=== PATIENT | male | born 1935 | race Hispanic/Latino ===

== ENCOUNTER 2022-12-20 06:07 | Observation (INO) | payer OTHER ==
[2022-12-17 10:36] LABS: BASOPHILS % (AUTO) 0.6 % (0.0-5.0); EOSINOPHILS % (AUTO) 2.9 % (0.0-8.0); LYMPHOCYTES % (AUTO) 35.9 % (21.0-51.0); MEAN CORPUSCULAR HEMOGLOBIN 31.6 pg (27.0-33.0); MEAN CORPUSCULAR HGB CONC 32.7 g/dL (32.0-36.0); MEAN CORPUSCULAR VOLUME 96.7 fL (79-99); MONOCYTES % (AUTO) 9.7 % (3.0-13.0); NEUTROPHILS % (AUTO) 50.6 % (40.0-77.0); PLATELET COUNT (AUTO) 146 K/uL (130-400); RED BLOOD CELL COUNT(AUTO) 4.24 MIL/uL (4.50-6.20); RED CELL DISTRIBUTION WIDTH 12.5 % (11.0-15.5); WHITE BLOOD COUNT (AUTO) 6.6 K/uL (4.8-10.8)
[2022-12-17 10:41] VITALS: BP 143/73
[2022-12-17 10:52] LABS: APPEARANCE,URINE CLEAR (CLEAR); BILIRUBIN,URINE NEGATIVE (NEGATIVE); COLOR,URINE YELLOW (YELLOW); GLUCOSE, URINE (UA) NEGATIVE (NEGATIVE); KETONES,URINE NEGATIVE (NEGATIVE); LEUKOCYTE ESTERASE ,URINE NEGATIVE Leu/uL (NEGATIVE); NITRATE,URINE NEGATIVE (NEGATIVE); OCCULT BLOOD,URINE NEGATIVE (NEGATIVE); PH,URINE 5.5 (5.0-8.0); PROTEIN,URINE NEGATIVE (NEGATIVE); UROBILINOGEN,URINE 0.2 mg/dL (0.2-1.0)
[2022-12-17 10:53] LABS: INR 0.93 (0.85-1.15); PROTHROMBIN TIME 10.2 SEC (9.6-11.6)
[2022-12-17 10:54] LABS: PARTIAL THROMBOPLASTIN TIME 27.7 SEC (26.3-35.5)
[2022-12-17 11:00] LABS: ALBUMIN 3.4 g/dL (3.5-5.0); CARBON DIOXIDE 28 mmol/L (21-32); CHLORIDE 103 mmol/L (101-111); CREATININE 0.9 mg/dL (0.5-1.5); GLOMERULAR FILTR. RATE CALC 84 mL/min (>90); GLUCOSE,RANDOM 103 mg/dL (70-105); POTASSIUM 3.6 mmol/L (3.5-5.1); SODIUM SERUM 138 mmol/L (136-145); UREA NITROGEN, BLOOD 22 mg/dL (7-18)
[2022-12-17 11:07] LABS: CRP QUANTITATIVE < 2.00 mg/L (0.00-9.0)
[2022-12-20] VITALS (26 sets, daily range): BP systolic 135–169; BP diastolic 81–104
[~2022-12-20] VITALS: Ht 172.7 cm; Wt 67.4 kg
[~2022-12-20 06:07] MED LIST: AEC81 PO; BUPIVACAINE/PF 0.5% 10ML VIAL ONE; KETOROLAC 30MG VIAL (30MG/ML) ONE; PRAV20TA4 PO; TRANEXAMIC ACID 1000MG/10ML ONE; TRAZ-185 PO
[2022-12-20] MEDS ORDERED: LACTATED RINGERS 1000ML 1,000 ML IV ONE (06:35)
[2022-12-20] MEDS: CEFAZOLIN SODIUM 2 GM VIAL ONE ×2 (08:23→09:45)
[2022-12-20] MEDS ORDERED: ROCURONIUM 10MG/1ML SYR 10 MG/ML ML ONE (09:44)
[2022-12-20] MEDS ORDERED: SUCCINYLCHOLINE CHLORIDE 20 MG/ML 10 ML VIAL ONE (09:44)
[2022-12-20] MEDS ORDERED: LIDOCAINE PF 100MG/5ML (2%) SYRINGE 5ML ONE (09:44)
[2022-12-20] MEDS ORDERED: ROPIVACAINE 0.5% 5MG/ML 30ML IJ ONE (09:44)
[2022-12-20] MEDS ORDERED: PROPOFOL 10 MG/ML 20ML VIAL IV ONE (09:44)
[2022-12-20] MEDS ORDERED: 0.9%NACL 10ML VIAL ONE (10:21)
[2022-12-20] MEDS ORDERED: FENTANYL CITRATE PF 50 MCG/1 ML 2ML VIAL ONE ×2 (10:21→10:51)
[2022-12-20] MEDS ORDERED: GLYCOPYRROLATE 1 MG/5 ML SYRINGE ONE (11:26)
[2022-12-20] MEDS ORDERED: ONDANSETRON 4MG INJ ONE (11:26)
[2022-12-20] MEDS ORDERED: NEOSTIGMINE 5MG/5ML SYR IV ONE (11:26)
[2022-12-20] MEDS ORDERED: TRANEXAMIC ACID 1000MG/10ML IV ONE (11:30)
[2022-12-20] MEDS ORDERED: PHENYLEPHRINE HCL 10 MG/ML 1ML VIAL IV ONE (11:47)
[2022-12-20] MEDS ORDERED: POTASSIUM CHLORIDE 10% ELIXIR 20 MEQ/15 ML UDCUP PO PRN (12:00)
[2022-12-20] MEDS ORDERED: FERROUS FUMARATE 324 MG TABLET PO PRN (12:00)
[2022-12-20] MEDS ORDERED: CALCIUM CARB 500MG PO PRN (12:00)
[2022-12-20] MEDS ORDERED: LIDOCAINE HCL-MPF 1% 2ML VIAL IV PRN (12:00)
[2022-12-20] MEDS ORDERED: DiphenhydrAMINE HCL 50 MG/ML VIAL IVP PRN (12:00)
[2022-12-20] MEDS ORDERED: KETOROLAC 15MG/ML VIAL (15MG/ML) IV PRN (12:00)
[2022-12-20] MEDS ORDERED: POTASSIUM CHLORIDE 20MEQ/100ML 100 ML IV PRN (12:00)
[2022-12-20] MEDS ORDERED: TRAMADOL HCL 50 MG TABLET PO PRN (12:00)
[2022-12-20] MEDS ORDERED: ONDANSETRON 4MG INJ IVP PRN (12:00)
[2022-12-20] MEDS ORDERED: MEPERIDINE-PF 25 MG/ML SYG ONE (12:15)
[2022-12-20] MEDS: KETOROLAC 15MG/ML VIAL (15MG/ML) IV SCH ×2 (12:50→20:46)
[2022-12-20] MEDS: 0.9%NACL 1000ML 1,000 ML IV SCH ×2 (13:18→22:41)
[2022-12-20] MEDS: GABAPENTIN 100 MG CAPSULE PO SCH ×2 (14:59→20:46)
[2022-12-20] MEDS: CEFAZOLIN SODIUM 1 GM VIAL IVP SCH (18:27)
[2022-12-20] MEDS: TRAZODONE HCL 50 MG TAB PO SCH (20:46)
[2022-12-20] MEDS: Pravastatin Sodium 20 MG PO SCH (20:50)
[2022-12-21] MEDS: CEFAZOLIN SODIUM 1 GM VIAL IVP SCH (00:26)
[2022-12-21] MEDS: KETOROLAC 15MG/ML VIAL (15MG/ML) IV SCH (03:34)
[2022-12-21 04:37] VITALS: BP 137/82
[2022-12-21 04:52] LABS: HEMATOCRIT 35.4 % (42-54); MEAN CORPUSCULAR HEMOGLOBIN 31.5 pg (27.0-33.0); MEAN CORPUSCULAR HGB CONC 33.1 g/dL (32.0-36.0); MEAN CORPUSCULAR VOLUME 95.2 fL (79-99); RED BLOOD CELL COUNT(AUTO) 3.72 MIL/uL (4.50-6.20); RED CELL DISTRIBUTION WIDTH 12.3 % (11.0-15.5); WHITE BLOOD COUNT (AUTO) 8.5 K/uL (4.8-10.8)
[2022-12-21 05:12] LABS: CREATININE 0.9 mg/dL (0.5-1.5); POTASSIUM 3.6 mmol/L (3.5-5.1)
[2022-12-21] MEDS: 0.9%NACL 1000ML 1,000 ML IV SCH (08:00)
[2022-12-21] MEDS: HYDROCODONE/ACETAMINOPHEN 5/325 MG TAB PO PRN ×3 (08:07→23:16)
[2022-12-21 08:12] VITALS: BP 131/79
[2022-12-21] MEDS: GABAPENTIN 100 MG CAPSULE PO SCH ×3 (09:21→20:08)
[2022-12-21] MEDS: POLYETHYLENE GLYCOL 3350 17 GM POWD.PACK PO SCH (09:21)
[2022-12-21] MEDS: ASPIRIN 325MG TAB PO SCH (09:59)
[2022-12-21 11:03] VITALS: BP 104/62
[2022-12-21] MEDS: KCL 20 MEQ ERTAB PO PRN ×2 (11:10→14:56)
[2022-12-21 16:30] VITALS: BP 91/56
[2022-12-21] MEDS: TRAZODONE HCL 50 MG TAB PO SCH (20:08)
[2022-12-21] MEDS: Pravastatin Sodium 20 MG PO SCH (20:13)
[2022-12-21 20:19] VITALS: BP 108/64
[2022-12-22] VITALS (8 sets, daily range): BP systolic 108–137; BP diastolic 62–76
[2022-12-22] MEDS: CYCLOBENZAPRINE HCL 10 MG TABLET PO PRN (07:42)
[2022-12-22] MEDS: POLYETHYLENE GLYCOL 3350 17 GM POWD.PACK PO SCH (07:42)
[2022-12-22] MEDS: GABAPENTIN 100 MG CAPSULE PO SCH ×3 (07:51→19:47)
[2022-12-22] MEDS: ASPIRIN 325MG TAB PO SCH (14:14)
[2022-12-22] MEDS ORDERED: ASPI-1026 PO (15:05)
[2022-12-22] MEDS ORDERED: HYDR-4060 PO (15:05)
[2022-12-22] MEDS ORDERED: GABA100C PO (15:05)
[2022-12-22] MEDS ORDERED: CYCL-309 PO (15:05)
[2022-12-22] MEDS ORDERED: DOCU-116 PO (15:05)
[2022-12-22] MEDS: Pravastatin Sodium 20 MG PO SCH (19:45)
[2022-12-22] MEDS: TRAZODONE HCL 50 MG TAB PO SCH (19:47)
[2022-12-23 03:51] VITALS: BP 139/75
[2022-12-23] MEDS: ASPIRIN 325MG TAB PO SCH (07:45)
[2022-12-23] MEDS: CYCLOBENZAPRINE HCL 10 MG TABLET PO PRN (07:45)
[2022-12-23] MEDS: POLYETHYLENE GLYCOL 3350 17 GM POWD.PACK PO SCH (07:46)
[2022-12-23] MEDS: GABAPENTIN 100 MG CAPSULE PO SCH ×3 (07:46→20:41)
[2022-12-23 08:00] VITALS: BP 145/79
[2022-12-23 12:00] VITALS: BP 155/79
[2022-12-23] MEDS ORDERED: BISACODYL 10 MG SUPP.RECT RC PRN (12:00)
[2022-12-23] MEDS: HYDROCODONE/ACETAMINOPHEN 5/325 MG TAB PO PRN (13:24)
[2022-12-23 16:00] VITALS: BP 151/80
[2022-12-23 19:32] VITALS: BP 135/75
[2022-12-23] MEDS: Pravastatin Sodium 20 MG PO SCH (20:41)
[2022-12-23] MEDS: TRAZODONE HCL 50 MG TAB PO SCH (20:41)
[2022-12-23 23:32] VITALS: BP 119/74
[2022-12-24 03:50] VITALS: BP 154/79
[2022-12-24 08:00] VITALS: BP 177/97
[2022-12-24] MEDS: POLYETHYLENE GLYCOL 3350 17 GM POWD.PACK PO SCH (08:35)
[2022-12-24] MEDS: ASPIRIN 325MG TAB PO SCH (08:39)
[2022-12-24 10:19] LABS: BASOPHILS % (AUTO) 0.4 % (0.0-5.0); EOSINOPHILS % (AUTO) 7.9 % (0.0-8.0); LYMPHOCYTES % (AUTO) 20.1 % (21.0-51.0); MEAN CORPUSCULAR HEMOGLOBIN 31.6 pg (27.0-33.0); MEAN CORPUSCULAR HGB CONC 33.1 g/dL (32.0-36.0); MEAN CORPUSCULAR VOLUME 95.5 fL (79-99); MONOCYTES % (AUTO) 12.2 % (3.0-13.0); PLATELET COUNT (AUTO) 158 K/uL (130-400); RED BLOOD CELL COUNT(AUTO) 3.35 MIL/uL (4.50-6.20); RED CELL DISTRIBUTION WIDTH 12.5 % (11.0-15.5); WHITE BLOOD COUNT (AUTO) 6.8 K/uL (4.8-10.8)
[2022-12-24 10:35] LABS: ALBUMIN 2.6 g/dL (3.5-5.0); CREATININE 0.8 mg/dL (0.5-1.5); POTASSIUM 3.6 mmol/L (3.5-5.1); TOTAL PROTEIN, SERUM 6.1 g/dL (6.0-8.3)
[2022-12-24 12:00] VITALS: BP 153/85
== END 2022-12-24 14:55 ==
LOC: DAH 06:07 → DAHIP 06:08 → DAH 06:08 → 4BH 13:10
PROVIDERS: ADMIT Student in an Organized Health Care Education/Training Program; ATTEND Student in an Organized Health Care Education/Training Program
DX: M17.11 Unilateral primary osteoarthritis, right knee (principal); Z20.822 Contact with and (suspected) exposure to COVID-19; D62 Acute posthemorrhagic anemia; M24.561 Contracture, right knee; M23.8X1 Other internal derangements of right knee; E78.5 Hyperlipidemia, unspecified; Z79.899 Other long term (current) drug therapy
CPT/HCPCS: 82040; 80048 ×2; 85025 ×2; 85610; 85730; 87088; 84134; 86140; 87426; 81003; 36415 ×3; 87641; 27447; 96374; 96376 ×2; 96375; 64447; 73560; 97161; 97039 ×8; 97530 ×4; 85027; 97116 ×7; 80053; G0378 ×96; A4663; A4215 ×2; J7120; J3010 ×2; J0690 ×3; J3490 ×4; J2710; J0330; J7030; J2001; J2704; J2405; J1885 ×4; J2175; J2795; J2370; G0168; A4649 ×4; C1776; A6255; A4223; A4222; A4221